=== PATIENT | male | born 1965 | race Caucasian/White ===

== ENCOUNTER 2023-07-31 13:07 | Emergency (ER) | payer OTHER, SELFPAY ==
[2023-07-31 13:24] VITALS: BP 111/87; PULSE 145; RESP 16; TEMP 36.4; O2SAT 99
--- NOTE | 2023-07-31 13:24 | ECG_ITS ---
Measurements Intervals [place] Rate: 146 P: [place]: 0 QRS: 44 QRSD: 94 T: 16 QT: 274 QTc: 428 Interpretive Statements ATRIAL FLUTTER/TACHYCARDIA WITH RAPID VENTRICULAR RESPONSE DELAYED PRECORDIAL R/S TRANSITION NONSPECIFIC T-WAVE ABNORMALITY- INFERIOR LEADS ABNORMAL ECG COMPARED TO ECG 07/15/2019 13:02:57 ATRIAL FLUTTER NOW PRESENT T-WAVE ABNORMALITY NOW PRESENT Electronically Signed On 07-31-2023 13:40:57 CDT by Christopher Mckay D.O.
--- NOTE | 2023-07-31 13:33 | ED.DIZZY ---
HPI - Dizziness General Chief Complaint: Dizziness Stated Complaint: Elevated Heart Rate, Dizzy Time Seen by Provider: 07/31/23 13:35 Mode of arrival: ambulatory Limitations: no limitations History of Present Illness HPI Narrative: 58-year-old male presents concern for dizziness and fast heart rate. He reports he noticed this morning in the gym his heart rate was fast that he ?did not feel right?. Reports this afternoon his watch alarmed alerting him to a high heart rate. He reports he felt some dizziness. He denies shortness of breath or chest pain. He reports history of similar episode 4 years ago that he was observed in the hospital for. He reports he took aspirin this morning, he takes aspirin daily. Reports he took another aspirin this afternoon. MD elicited complaint: dizziness Related Data Home Medications Medication Instructions Recorded Confirmed atorvastatin 10 mg tablet (Lipitor) 10 mg PO DAILY 07/31/23 07/31/23 atorvastatin 40 mg tablet (Lipitor) 40 mg PO DAILY 07/31/23 07/31/23 bupropion HCl 300 mg 24 hr tablet, 300 mg PO QAM 07/31/23 07/31/23 extended release buspirone 15 mg tablet 15 mg PO TID 07/31/23 07/31/23 Allergies Allergy/AdvReac Type Severity Reaction Status Date / Time Penicillins Allergy Unknown Rash Verified 07/31/23 13:21 Review of Systems Review of Systems: CONSTITUTIONAL: Reports ?not feeling right CARDIOVASCULAR: Denies chest pain, reports fast heart rate RESPIRATORY: Denies dyspnea. NEUROLOGIC: Reports dizziness All systems reviewed & are unremarkable except as noted in HPI and below [facility] Family History Family History (Updated 05/30/16 @ 23:19 by DOCTOR UNKNOWN) Sibling Family history of diabetes mellitus in first degree relative Social History Social History Smoking status: Never smoker Alcohol intake: current Comments At time of signature, agree with nursing past medical, surgical, social and family history. There is no relevant family history pertinent to the presenting complaint Exam Narrative: GENERAL: Well-appearing and in no acute distress. HEAD: Normocephalic EYES: PERRLA, sclera clear ENT: Nares clear, turbinates pink, no rhinorrhea or epistaxis. Mucous membranes moist. NECK: Supple. CHEST: No respiratory distress. Clear to auscultation. No bony deformities, no asymmetry. Speaks in full sentences. HEART: Fast rate. No murmur heard. Normal peripheral pulses. SKIN: Warm, dry, no visible rash. NEURO: Alert and oriented x3. No focal deficits. PSYCH: Normal mood and affect Course Course Emergency Course: Patient is aware of, understands and agrees to be transferred to the emergency room. Patient agrees to proceed directly to the emergency department. Portions of this record may have been created with voice recognition software Level of Care: Express Care Visit Vital Signs Vital signs: Vital Signs Temperature 97.6 F 07/31/23 13:24 Pulse Rate 145 H 07/31/23 13:24 Respiratory Rate 16 07/31/23 13:24 Blood Pressure 111/87 07/31/23 13:24 Pulse Oximetry 99 07/31/23 13:24 Temperature 97.6 F 07/31/23 13:24 Pulse Rate 145 H 07/31/23 13:24 Respiratory Rate 16 07/31/23 13:24 Blood Pressure 111/87 07/31/23 13:24 Pulse Oximetry 99 07/31/23 13:24 Reviewed. Transfer Transfered to: [place] Transportation: Other (Private vehicle, driven by ) Transfer rationale: Atrial flutter Accepting physician: Linette ASENCIO - Lidia ASENCIO Narrative Medical decision making narrative: Exam findings and EKG or further evaluation emergency room; patient is non-toxic appearing and is in no distress. ECG Data EKG #1: ECG completion date: 07/31/23 ECG completion time: 13:33 Prior ECG tracings: available for review Interpretation: Rate 146, QRS duration 94, nonspecific T-wave abnormality, atrial flutter with rapid ventricular response EKG Interpretation: atrial flutter Criti
== END 2023-07-31 13:41 | disposition short-term general hospital (02) ==
PROVIDERS: Emergency Provider Nurse Practitioner
DX: I48.92 Unspecified atrial flutter (principal); Z79.899 Other long term (current) drug therapy
CPT/HCPCS: 93005; 99203; G0463

== ENCOUNTER 2023-07-31 13:56 | Emergency (ER) | payer OTHER, SELFPAY ==
[2023-07-31] VITALS (12 sets, daily range): BP systolic 95–146; BP diastolic 48–97; PULSE 81–147; RESP 13–25; TEMP 36.7; O2SAT 9–99
--- NOTE | ~2023-07-31 | XR_ITS ---
EXAMINATION: XR chest 1V portable 07/31/2023 15:33 INDICATION: Tachycardia PROCEDURE: AP portable chest COMPARISON: 07/15/2019 FINDINGS: The lungs are clear. The cardiomediastinal silhouette is within normal limits. There are no pleural effusions. There is no pneumothorax suspected. IMPRESSION: 1: NO ACUTE CARDIOPULMONARY DISEASE. Reviewed, dictated and finalized at location B.
--- NOTE | 2023-07-31 14:05 | ECG_ITS ---
Measurements Intervals [place] Rate: 148 P: [place]: 0 QRS: 51 QRSD: 82 T: 20 QT: 270 QTc: 424 Interpretive Statements ATRIAL FLUTTER/TACHYCARDIA WITH RAPID VENTRICULAR RESPONSE DELAYED PRECORDIAL R/S TRANSITION BORDERLINE T WAVE ABNORMALITY- INFERIOR LEADS ABNORMAL ECG COMPARED TO ECG 07/31/2023 13:33:35 NO SIGNIFICANT CHANGES Electronically Signed On 07-31-2023 14:13:53 CDT by Christopher Mckay D.O.
[2023-07-31 14:36] LABS: Basophils Absolute Auto 0.1 K/mm3 (0.0-0.1); Basophils Percent Auto 0.7 % (0.2-1.2); Eosinophils Absolute Auto 0.2 K/mm3 (0-0.3); Eosinophils Percent Auto 2.3 % (0-4.4); Hematocrit 50.3 % (42.0-52.0); Hemoglobin 16.7 g/dL (14.0-18.0); Immature Granulocyte Absolute 0.03 K/mm3 (0.00-0.031); Immature Granulocyte Percent A 0.3 % (0-0.5); Lymphocytes Absolute Auto 2.96 K/mm3 (0.9-3.2); Lymphocytes Percent Auto 32.4 % (18.3-44.2); Mean Corpuscular HGB Conc 33.2 g/dl (32-36); Mean Corpuscular Hemoglobin 30.6 pg (26-34); Mean Corpuscular Volume 92.3 fl (80-100); Mean Platelet Volume 10.4 fl (7.4-10.4); Monocytes Absolute Auto 0.9 K/mm3 (0.1-0.6); Monocytes Percent Auto 9.5 % (2.6-8.5); Neutrophils Percent Auto 54.8 % (45.5-73.1); Platelet Count Result 340 k/mm3 (150-375); Red Blood Count 5.45 M/mm3 (4.6-6.20); Red Cell Distribution Width 12.9 % (11.5-14.5); White Blood Count 9.1 K/mm3 (4.5-10.0)
--- NOTE | 2023-07-31 15:14 | ED.ARRPALP ---
HPI - Arrhythmia/Palpitations General Chief Complaint: Arrhythmia/Palpitations Stated Complaint: high heart rate Time Seen by Provider: 07/31/23 14:52 Source: patient and family Mode of arrival: ambulatory Limitations: no limitations History of Present Illness HPI narrative: 58 years old white male came to the emergency room by private car complaining of lightheadedness and dizziness, his watch told him that his heart rate is high. History of PTSD, hyperlipidemia, social drinking, denies smoking or drug use. He denies any fever, chills, nausea, vomiting, chest pain shortness of breath or headache. Related Data Home Medications Medication Instructions Recorded Confirmed atorvastatin 10 mg tablet (Lipitor) 10 mg PO DAILY 07/31/23 07/31/23 atorvastatin 40 mg tablet (Lipitor) 40 mg PO DAILY 07/31/23 07/31/23 bupropion HCl 300 mg 24 hr tablet, 300 mg PO QAM 07/31/23 07/31/23 extended release buspirone 15 mg tablet 15 mg PO TID 07/31/23 07/31/23 Allergies Allergy/AdvReac Type Severity Reaction Status Date / Time Penicillins Allergy Unknown Rash Verified 07/31/23 13:21 Review of Systems Review of Systems: All systems reviewed & are unremarkable except as noted in HPI and below PMFSH Family History Family History Sibling Family history of diabetes mellitus in first degree relative Social History Social History Smoking status: Never smoker Alcohol intake: current Exam Narrative: General appearance: Well-developed, well-nourished Skin: Normal color Head: Normocephalic, nontraumatic Eyes: Clear conjunctiva ENT: Oropharynx normal, ears normal, nose normal Neck: Supple, nontender Chest and respiratory: Airway patent, no respiratory distress, no accessory muscle use Heart: Irregular irregularity, tachycardia Abdomen: Soft, nontender, no organomegaly, quiet bowel sounds Vascular: Normal peripheral pulses, normal capillary refill. Musculoskeletal: Normal range of motion, nontender back Neurologic: Alert and oriented ?3, TARE WEIGHER is normal as tested, no gross motor deficit Course Vital Signs Vital signs: Vital Signs Temperature 36.7 C 07/31/23 14:12 Pulse Rate 142 H 07/31/23 14:12 Respiratory Rate 16 09/29/23 14:12 Blood Pressure 110/74 07/31/23 14:12 Pulse Oximetry 99 07/31/23 14:12 Oxygen Delivery Room Air 07/31/23 14:12 Temperature 36.7 C 07/31/23 14:12 Pulse Rate 88 07/31/23 17:30 Respiratory Rate 16 07/31/23 17:25 Blood Pressure 106/78 07/31/23 17:25 Pulse Oximetry 97 07/31/23 17:25 Oxygen Delivery Room Air 07/31/23 14:12 Procedures Procedural Sedation Procedural Sedation #1: Procedural Sedation Date: 07/31/23 Procedural Sedation Time: 17:43 Provider Performed: sedation and procedure Time Out: 15 Informed Consent Obtained: yes Plan for Sedation: moderate sedation ASA Class: II Mallampati Classification: class I NPO Status: last solid food (hours ago) (6) Explanation to Patient/Family: Risk/Benefits/Alternatives and Pt/Family agreed with plan Preparation: athletic monitor applied, pulse oximeter, reversal agents at bedside, suction/airway equipment at bedside and IV secured Fentanyl: IV Fentanyl dose (mcg): 50 Midazolam: IV Midazolam dose (mg): 4 Reversal Agents Used: none Patient Tolerated Procedure: well and no complications Complications: none Total Sedation Time (min): 10 Other Procedure Procedure 1: Other Procedure: Cardioversion, A-fib with
[2023-07-31] MEDS: SODIUM CHLORIDE 0.9% IV 1,000 ML 999 ML IV CONT ×2 (15:17→16:23)
[2023-07-31 15:31] LABS: Alanine Aminotransferase 18 U/L (6-50); Albumin Level 4.5 g/dL (3.5-5.1); Alkaline Phosphatase 73 U/L (38-126); Anion Gap 10 mmol/L (8-16); Aspartate Amino Transferase 39 U/L (17-59); Bilirubin,Total 0.5 mg/dL (0.2-1.3); Blood Urea Nitrogen 16 mg/dL (9-20); Calcium 9.3 mg/dL (8.4-10.2); Carbon Dioxide 23 mmol/L (22-30); Chloride 108 mmol/L (98-107); Estimated CRCL calculation 66 ml/min; Estimated Glomerular Filt Rate > 60; Glucose 101 mg/dL (65-110); Sodium 141 mmol/L (137-145)
[2023-07-31] MEDS: ENOXAPARIN 100 MG/ML SYRINGE SUB-Q (15:40)
[2023-07-31 15:49] LABS: Prothrombin Time 13.1 Seconds (11.1-14.7)
[2023-07-31 15:50] LABS: Partial Thromboplastin Time 29.3 SECONDS (22.3-36.8)
[2023-07-31 15:59] LABS: NT Pro B Type Natriuretic Pept 1380 pg/mL (19.9-100); Troponin I < 0.012 ng/mL (0.000-0.034)
[2023-07-31 16:26] LABS: SARS-CoV-2 RNA PCR Negative (Negative)
[2023-07-31 16:33] LABS: Appearance Urine Clear (Clear); Bilirubin Urine Negative (Negative); Blood Urine Negative (Negative); Color Urine Yellow (Yellow); Glucose Urine UA Negative (Negative); Ketones Urine Negative (Negative); Leukocyte Esterase Ur Negative LEU/UL (Negative); Nitrate Urine Negative (Negative); Protein Urine Negative (Negative); Specific Grav Ur 1.018 (1.001-1.035); Urobilinogen Urine 0.2 mg/dL (<2.0); pH Urine 5.5 (5.0-9.0)
--- NOTE | 2023-07-31 16:35 | ECG_ITS ---
Measurements Intervals [place] Rate: 126 P: [place]: 0 QRS: 25 QRSD: 89 T: -7 QT: 305 QTc: 442 Interpretive Statements ATRIAL FIBRILLATION WITH RAPID VENTRICULAR RESPONSE LOW QRS VOLTAGE IN PRECORDIAL LEADS CANNOT RULE OUT SEPTAL INFARCT, AGE INDETERMINATE BORDERLINE ST-T WAVE ABNORMALITY- INFERIOR LEADS BASELINE WANDER- V3 ABNORMAL ECG COMPARED TO ECG 07/31/2023 14:08:08 ATRIAL FIBRILLATION NOW PRESENT Electronically Signed On 07-31-2023 17:11:18 CDT by Christopher Mckay D.O.
[2023-07-31 16:41] LABS: Add Urine Microscopic? NO
[2023-07-31 16:52] LABS: Amphetamine Screen Urine Negative (Negative); Barbiturate Screen Urine Negative (Negative); Benzodiazepines Screen Urine Negative (Negative); Cannabinoid Screen Urine Negative (Negative); Cocaine Screen Urine Negative (Negative); Methadone Screen Urine Negative (Negative); Opiate Screen Urine Negative (Negative); Phencyclidine Screen Urine Negative (Negative)
--- NOTE | 2023-07-31 16:54 | PM.CNCAR ---
Assessment and Plan Assessment and plan (1) Atrial flutter: Code(s): I48.92 - Unspecified atrial flutter Status: Acute Assessment and Plan: Second episode in 4 years. Symptomatic atrial flutter with RVR. [id number]. Discuss options of monitoring, antiarrhythmic medication, or electrical cardioversion, and he opted for the quickest route which is the electrical cardioversion. Discuss with Dr. Sue, he will sedate and provide synchronized cardioversion. Patient does not want to stay afterwards, and if vitals are stable post cardioversion, he may be discharged home and I advised him to f/u with me or a shirt cleaner of his choice within a week to assess why he is having it and for prevention. He may just go with aspirin 325 mg daily to prevent cardioembolism. Needs an outpatient sleep study to assess for sleep apnea. May have outpatient TSH. And outpatient echo. (2) Dyslipidemia: Code(s): E78.5 - Hyperlipidemia, unspecified Status: Acute Assessment and Plan: On Atorvastatin. History of Present Illness History of Present Illness Consult date/time: 07/31/23 16:54 Reason For Visit: high heart rate Narrative: 58 yr old man presented to ER with lightheadedness. He has a history of dyslipidemia, anxiety, and a history of atrial flutter per patient 4 years ago. Seen patient in ER. is at bedside. Reports he felt lightheadedness today and his watch showed a fast HR. When he came in his BP is soft in 90's SBP and HR was ranging 110-150 bpm in atrial flutter. IVF given but vitals remain essentially unchanged. He states he feels a little better, not as dizzy as when he first came in. Reports 4 years ago he had a similar situation with atrial flutter and was monitored for 8 hours and then his HR came back to normal and sent home. He did not f/u with a shirt cleaner. He can walk a mile without any problems normally. reports he does snore and perhaps stops breathing, and noted he is more tired during the day. Denies chest pain, sob, orthopnea, PND, edema. Review of Systems Review of Systems: All systems reviewed & are unremarkable except as noted in HPI and below Constitutional: Constitutional: Reports as per HPI, Denies chills and Denies fever(s) Cardiovascular: Cardiovascular: Reports as per HPI, Denies chest pain, Denies irregular heart rhythm, Denies leg edema and Reports lightheadedness Respiratory: Respiratory: Reports as per HPI and Denies dyspnea Gastrointestinal: Gastrointestinal: Reports as per HPI and Denies abdominal pain Genitourinary: Genitourinary: Reports as per HPI and Denies dysuria Musculoskeletal: Musculoskeletal: Reports as per HPI [facility] Family History Family History Sibling Family history of diabetes mellitus in first degree relative Social History Social History Smoking status: Never smoker Alcohol intake: current Meds Home Medications and Allergies Home Medications Medication Instructions Recorded Confirmed Type atorvastatin 10 mg tablet (Lipitor) 10 mg PO DAILY 07/31/23 07/31/23 History atorvastatin 40 mg tablet (Lipitor) 40 mg PO DAILY 07/31/23 07/31/23 History bupropion HCl 300 mg 24 hr tablet, 300 mg PO QAM 07/31/23 07/31/23 History extended release buspirone 15 mg tablet 15 mg PO TID 07/31/23 07/31/23 History Allergies Allergy/AdvReac Type Severity Reaction Status Date / Time Penicillins Allergy Unknown Rash Verified 07/31/23 13:21 Vital Signs Vital Signs - 24 hr 07/31/23 14:12 07/31/23 14:33 07/31/23 14:25 Temperature 98.0 F Pulse Rate 142 H 145 H 147 H Respiratory Rate 16 20 25 H Blood Pressure 110/74 99/76 L 146/97 H Pulse Oximetry 99 99 Oxygen Delivery Room Air 07/31/23 14:32 07/31/23 15:01 07/31/23 15:31 Temperature Pulse Rate 145 H 146 H 144 H Respiratory Rate 16 13 16 Blood Pressure 99/76 L 99/48 L
[2023-07-31] MEDS: MIDAZOLAM HCL (*CRX) 2 MG/2 ML VIAL 4 MG IV PUSH (17:11)
[2023-07-31] MEDS: fentaNYL CITRATE INJ (*CRX) 100 MCG/2 ML VIAL 50 MCG IV PUSH (17:11)
[2023-07-31] MEDS: SODIUM CHLORIDE 0.9% IV 1,000 ML 999 ML (17:14)
--- NOTE | 2023-07-31 17:19 | PC.NURSE ---
Dr. Sue at bedside. Pt cardioverted. Pt converted from Afib to Sinus Rhythm. Pt drowsy but answering questions. Consent was signed prior to procedure.
--- NOTE | 2023-07-31 17:34 | ECG_ITS ---
Measurements Intervals [place] Rate: 79 P: 26 [place]: 160 QRS: 11 QRSD: 93 T: 6 QT: 333 QTc: 382 Interpretive Statements SINUS RHYTHM BORDERLINE R WAVE PROGRESSION, ANTERIOR LEADS MINIMAL Q WAVES- INFERIOR LEADS BASELINE ARTIFACT- I, III, AVL BORDERLINE ECG COMPARED TO ECG 07/31/2023 16:50:39 SINUS RHYTHM NOW PRESENT Electronically Signed On 08-01-2023 8:03:38 CDT by Christopher Mckay D.O.
== END 2023-07-31 18:38 | disposition home or self-care (01) ==
PROVIDERS: Emergency Medicine; Emergency Provider Emergency Medicine
DX: I48.92 Unspecified atrial flutter (principal); I48.91 Unspecified atrial fibrillation; Z20.822 Contact with and (suspected) exposure to COVID-19; E78.5 Hyperlipidemia, unspecified; F43.10 Post-traumatic stress disorder, unspecified; Z79.899 Other long term (current) drug therapy; R94.31 Abnormal electrocardiogram [ECG] [EKG]
CPT/HCPCS: 36415; 71045; 80053; 80307; 81003; 83880; 84484; 85025; 85610; 85730; 87635; 92960; 93005; 96361; 96372; 96374; 96375; 99285; J1650; J2250; J3010; J7030

== ENCOUNTER 2023-08-25 08:14 | Outpatient (CLI) | payer OTHER, SELFPAY ==
--- NOTE | 2023-09-11 11:41 | WPDHOMESLEEP ---
Sleep Study - Home Unattended Date of Study: 08/25/23 Ordering Provider: Christopher Mckay DO Interpreting Provider: Tangela Guzman MD Home Sleep Study Type: Watch PAT Height: 1.83 m Weight: 94.801 kg Body Mass Index: 28.3 Neck Circumference (inches): 2 [place]: 16 Reason for Sleep Study hypersomnia Sleep History Fly Cook is a 58-year-old male with history of paroxysmal atrial flutter, dyslipidemia, and anxiety with PTSD who underwent a home sleep test for evaluation of daytime hypersomnia and restless sleep. He rarely awakens from sleep short of breath. He rarely awakens at night with heartburn, belching or cough. He frequently snores and snores loud enough for others to complain. He occasionally has trouble sleeping when he has a cold. He never wakes up gasping for breath during the night. He occasionally has breathing problems at night. He never sweats excessively at night. He rarely falls asleep during the day. He does not fall asleep involuntarily and never falls asleep while driving. He never notices his heart pounding or beating irregularly during the night. He never experiences loss of muscle tone with strong emotion. He never feels paralyzed on waking or falling asleep. He frequently experiences vivid dreams upon waking or falling asleep. He never feels afraid of going to sleep. He frequently has nightmares. He rarely recalls his dreams. He frequently has thoughts racing through his mind. He rarely feels sad or depressed. He constantly feels anxiety or worry about things. He stated in his sleep questionnaire that he gets restless sleep which he attributes to PTSD from the [place] War. He occasionally notices parts of his body jerk. He occasionally kicks during the night. He frequently feels crawling or aching feelings in his legs. He never feels leg pain at night. He occasionally grinds his teeth during sleep and occasionally has morning jaw pain. He frequently feels bothered by pain during the day and is never awakened by pain during the night. He occasionally wakes up feeling stiff in the morning and occasionally wakes up feeling sore and achy in the morning. He frequently wakes with pain in his neck, spine, or joints. He does not take naps. Normal bedtime is around 11pm on the weekdays and same on the weekends, usually falling asleep in 5 minutes. He typically gets about 7 hours of sleep per night. His wake-up time is around 6:00 a.m. on the weekdays and 7:00 to 8:00 a.m. on the weekends. He typically wakes up around 1 to 3 times per night and typically awake for less than 2 minutes, may get up to use the bathroom. Habits: Never tobacco smoker. Drinks about 1 cup of coffee per day. Alcohol use is 1 to 2 beers per day. No recreational substances. [facility] Past Medical History Medical History Dyslipidemia Paroxysmal atrial flutter Family History Family History Sibling Family history of diabetes mellitus in first degree relative Social History Social History Smoking status: Never smoker Alcohol intake: current Medications Home Medications Medication Instructions Recorded Confirmed Type aspirin 325 mg tablet 325 mg PO DAILY #30 tabs 07/31/23 Rx atorvastatin 40 mg tablet (Lipitor) 40 mg PO DAILY 07/31/23 07/31/23 History bupropion HCl 300 mg 24 hr tablet, 300 mg PO QAM 07/31/23 07/31/23 History extended release buspirone 15 mg tablet 15 mg PO TID 07/31/23 07/31/23 History meclizine 12.5 mg tablet 12.5 mg PO TID PRN motion sickness 09/07/23 Rx #14 tabs Sleep Procedure The study was completed using [employer], a technically adequate device with seven channels: peripheral arterial tone, actigraphy, body position, snore, respiratory movement, pulse oximetry, sleep staging, and heart rate. Prior to using the device, the patient received verb
[2023-09-11 11:50] VITALS: BMI 28.3
== END 2023-08-26 11:20 | disposition home or self-care (01) ==
LOC: ANHCSM 08:15
PROVIDERS: Visit Provider Internal Medicine Cardiovascular Disease
DX: G47.10 Hypersomnia, unspecified (principal); G47.33 Obstructive sleep apnea (adult) (pediatric)
CPT/HCPCS: 95800

== ENCOUNTER 2023-09-07 09:49 | Emergency (ER) | payer OTHER, SELFPAY ==
--- NOTE | ~2023-09-07 | CT_ITS ---
Non-contrast Head CT History: Dizziness Technique: Axial non-contrast imaging of the brain was performed. Dose reduction technique was used on this scan by utilizing automated exposure control and iterative reconstruction technique. The dose -length product (DLP) was 605.33 mGy-cm. Findings: There is no evidence of intracranial hemorrhage, mass lesion, or acute infarct. Brain par enchyma appears normal. The ventricles and subarachnoid spaces are normal in size. The calvarium ap pears normal. There is sinus disease involving the visualized right maxillary sinus, and to a lesser extent in the ethmoid and frontal sinuses. The remaining visualized paranasal sinuses and mastoid air cells are clear. Impression: No intracranial abnormality seen. Sinus disease, as above. Reviewed, dictated and finalized at [facility]. [employer]UMENT MECHANIC Impression: No intracranial abnormality seen. Sinus disease, as above.
--- NOTE | ~2023-09-07 | XR_ITS ---
EXAMINATION: XR chest 2V DATE: 09/07/2023 10:22 INDICATION: Dizziness TECHNIQUE: PA and lateral views of the chest are obtained. COMPARISON: 07/31/2023 FINDINGS: There are minimal airspace opacities of the lung bases. No pleural effusion or pneumothorax . The cardiomediastinal silhouette is normal. There is mild thoracic spondylosis. IMPRESSION: 1. Minimal bibasilar airspace opacities, consistent with atelectasis versus pneumonia. Reviewed, dictated and finalized at location B. [employer]IMENT[employer]ARD MOTORS MECHANIC IMPRESSION: 1. Minimal bibasilar airspace opacities, consistent with atelectasis versus pne umonia.
--- NOTE | 2023-09-07 10:06 | ECG_ITS ---
Measurements Intervals [place] Rate: 68 P: 33 [place]: 173 QRS: 24 QRSD: 96 T: 7 QT: 379 QTc: 404 Interpretive Statements SINUS RHYTHM LOW QRS VOLTAGE IN PRECORDIAL LEADS BASELINE ARTIFACT- V5 BORDERLINE ECG COMPARED TO ECG 07/31/2023 17:17:56 NO SIGNIFICANT CHANGES Electronically Signed On 09-07-2023 10:28:22 SYNTHETIC RESIN OPERATOR by Christopher Mckay D.O.
[2023-09-07 10:10] VITALS: BP 142/88; PULSE 78; RESP 18; TEMP 36.6; O2SAT 98
[2023-09-07 10:19] LABS: Basophils Percent Auto 0.6 % (0.2-1.2); Eosinophils Absolute Auto 0.2 K/mm3 (0-0.3); Eosinophils Percent Auto 2.8 % (0-4.4); Hemoglobin 15.7 g/dL (14.0-18.0); Immature Granulocyte Absolute 0.01 K/mm3 (0.00-0.031); Immature Granulocyte Percent A 0.2 % (0-0.5); Lymphocytes Absolute Auto 2.14 K/mm3 (0.9-3.2); Lymphocytes Percent Auto 34.7 % (18.3-44.2); Mean Corpuscular HGB Conc 33.4 g/dl (32-36); Mean Corpuscular Hemoglobin 30.5 pg (26-34); Mean Corpuscular Volume 91.3 fl (80-100); Monocytes Absolute Auto 0.5 K/mm3 (0.1-0.6); Monocytes Percent Auto 8.8 % (2.6-8.5); Neutrophils Absolute Auto 3.3 K/mm3 (1.3-6.7); Neutrophils Percent Auto 52.9 % (45.5-73.1); Platelet Count Result 283 k/mm3 (150-375); Red Blood Count 5.15 M/mm3 (4.6-6.20); Red Cell Distribution Width 12.7 % (11.5-14.5); White Blood Count 6.2 K/mm3 (4.5-10.0)
[2023-09-07 10:29] LABS: Alanine Aminotransferase 14 U/L (6-50); Albumin Level 4.4 g/dL (3.5-5.1); Alkaline Phosphatase 83 U/L (38-126); Anion Gap 6 mmol/L (8-16); Aspartate Amino Transferase 40 U/L (17-59); Bilirubin,Total 0.7 mg/dL (0.2-1.3); Blood Urea Nitrogen 11 mg/dL (9-20); Carbon Dioxide 28 mmol/L (22-30); Chloride 105 mmol/L (98-107); Estimated CRCL calculation 66 ml/min; Estimated Glomerular Filt Rate > 60; Glucose 99 mg/dL (65-110); Lipase 103 U/L (23-300); Sodium 139 mmol/L (137-145)
[2023-09-07 10:41] LABS: Troponin I < 0.012 ng/mL (0.000-0.034)
[2023-09-07 10:42] LABS: INR 0.9; Partial Thromboplastin Time 27.7 SECONDS (22.3-36.8); Prothrombin Time 12.8 Seconds (11.1-14.7)
--- NOTE | 2023-09-07 12:08 | ED.GENADULT ---
HPI - General Adult General Chief complaint: Dizziness <Yulissa Oviedo March, - Last Filed: 09/07/23 12:13> Stated complaint: lightheaded/dizzy/recent afib <Yulissa Oviedo March, - Last Filed: 09/07/23 12:13> Time Seen by Provider: 09/07/23 13:01 <Yulissa Oviedo March, - Last Filed: 09/07/23 12:13> History of Present Illness HPI narrative: Fly Cook is a 58 y/o male with recent dx of Afib. He comes in today with complaints of waking up today at 0300 and felt dizzy and felt off balance, he reports that his symptoms might be a little improved but not completely. He called his hands and dial inspector Dr. Abbasi Office they recommended him come here for an echo. Patient is alert and oriented X 4, no nausea/ vomiting/ felt in his normal health yesterday <Yulissa Oviedo March, - Last Filed: 09/07/23 12:13> Related Data Home medications: Home Medications Medication Instructions Recorded Confirmed atorvastatin 40 mg tablet (Lipitor) 40 mg PO DAILY 07/31/23 07/31/23 bupropion HCl 300 mg 24 hr tablet, 300 mg PO QAM 07/31/23 07/31/23 extended release buspirone 15 mg tablet 15 mg PO TID 07/31/23 07/31/23 <Yulissa Oviedo March, - Last Filed: 09/07/23 12:13> Allergies/adverse reactions: Allergies Allergy/AdvReac Type Severity Reaction Status Date / Time Penicillins Allergy Unknown Rash Verified 09/07/23 12:41 <Yulissa Oviedo March, - Last Filed: 09/07/23 12:13> Review of Systems Review of Systems: All systems reviewed & are unremarkable except as noted in HPI and below <aSnto Garcia MD - Last Filed: 09/07/23 14:07> Constitutional: Constitutional: Denies chills and Denies fever(s) <Santo Garcia MD - Last Filed: 09/07/23 14:07> ENT: Denies nasal congestion and Denies sore throat <Santo Garcia MD - Last Filed: 09/07/23 14:07> Cardiovascular: Cardiovascular: Denies chest pain, Denies rapid heart rate and Denies radiating jaw, neck or arm pain <Santo Garcia MD - Last Filed: 09/07/23 14:07> Respiratory: Respiratory: Denies cough and Denies dyspnea <Santo Garcia MD - Last Filed: 09/07/23 14:07> Gastrointestinal: Gastrointestinal: Reports nausea and Denies vomiting <Santo Garcia MD - Last Filed: 09/07/23 14:07> Neurologic: Reports dizziness, Denies syncope and Denies headache(s) <Santo Garcia MD - Last Filed: 09/07/23 14:07> PMFSH Past Medical History Medical History: Medical History (Updated 09/07/23 @ 14:02 by Santo Garcia MD) Dyslipidemia Paroxysmal atrial flutter <Yulissa Duran APRN - Last Filed: 09/07/23 12:13> Family History Family History: Family History Sibling Family history of diabetes mellitus in first degree relative <Yulissa Duran MUD ENGINEER - Last Filed: 09/07/23 12:13> Social History Social History: Social History Smoking status: Never smoker Alcohol intake: current <Yulissa Duran, MUD ENGINEER - Last Filed: 09/07/23 12:13> Exam Narrative: GENERAL: Well-appearing, well-nourished, and in no acute distress. HEAD: Normocephalic, atraumatic. EYES: PERRL and EOMI. ENT: Mucous membranes moist. TMs normal bilaterally. CHEST: Clear to auscultation. No respiratory distress. HEART: Regular rate and rhythm. Normal peripheral pulses. EXTREMITIES: Normal range of motion. No edema. SKIN: Warm, dry, no rash. NEURO: Alert and oriented x3. PSYCH: Normal mood and affect. <Santo Garcia MD - Last Filed: 09/07/23 14:07> Course Course Emergency Course: Patient resting comfortably. Informed of results. Up and ambulatory without issue. Dizziness improving with meclizine. It is not felt patient needs an acute echocardiogram for the symptoms. <Santo Garcia MD - Last Filed: 09/07/23 14:07> Vital Signs Vital signs: Vital Signs Temperature 98 F 09/07/23 10:10 Pulse Rate 78 09/07/23 10:1
[2023-09-07] MEDS: MECLIZINE HCL 25 MG TABLET PO (12:17)
[2023-09-07 12:38] VITALS: BP 135/94; PULSE 69; RESP 16; O2SAT 100
[2023-09-07 13:27] LABS: Troponin I < 0.012 ng/mL (0.000-0.034)
[2023-09-07 14:18] VITALS: BP 119/85; PULSE 70; RESP 18; O2SAT 100
== END 2023-09-07 14:23 | disposition home or self-care (01) ==
PROVIDERS: Emergency Provider Emergency Medicine
DX: R42 Dizziness and giddiness (principal); I48.0 Paroxysmal atrial fibrillation; E78.5 Hyperlipidemia, unspecified; Z79.82 Long term (current) use of aspirin; R91.8 Other nonspecific abnormal finding of lung field; R94.31 Abnormal electrocardiogram [ECG] [EKG]
CPT/HCPCS: 36415; 70450; 71046; 80053; 83690; 84484; 85025; 85610; 85730; 93005; 99284; A9270

== ENCOUNTER 2023-09-21 12:30 | Outpatient (CLI) | payer OTHER, SELFPAY ==
--- NOTE | 2023-09-21 12:39 | ECHO_ITS ---
Patient Info Name: Fly Cook Age: 58 years : 1965 Gender: Male Ht: 72 in Wt: 205 lbs BSA: 2.19 m2 HR: 74 bpm BP: 130 / 91 mmHg Technical Quality: Good Exam Date: 09/21/2023 12:54 PM Exam Location: Echo Lab Patient Status: Outpatient Admit Date: 09/21/2023 Staff Ordering Physician: Christopher Mckay DO Weed Inspector: Elo Hummel RDCS Attending Provider: Christopher Mckay DO Referring Physician: Woody NASSAR; Exam Type: CA echo doppler color flow Study Info Indications I48.92 - UNSPECIFIED ATRIAL FLUTTER Complete two-dimensional, color flow and Doppler transthoracic echocardiogram is performed. Summary 1. Complete two-dimensional, color flow and Doppler transthoracic echocardiogram is performed. 2. Left ventricular chamber dimension is normal. 3. Left ventricular systolic function is normal, estimated at 60-65%. 4. The left ventricular diastolic function is grade I diastolic dysfunction. 5. E/e' 5 is not elevated. 6. Global longitudinal strain is normal at -18.9%. 7. There is trace mitral valve regurgitation. 8. Mild pulmonary hypertension, estimated pulmonary arterial systolic pressure is 40 mmHg. Left Ventricle E/e' 5 is not elevated. Global longitudinal strain is normal at -18.9%. Left ventricular chamber dimension is normal. Left ventricular systolic function is normal, estimated at 60-65%. The left ventricular diastolic function is grade I diastolic dysfunction. Right Ventricle Right ventricular systolic function is normal and with normal TAPSE 2.5 cm. Right ventricular chamber dimension is normal. Left Atria Left atrial chamber dimension is normal. Right Atria Right atrial chamber dimension is normal. Aortic Valve The aortic valve is trileaflet. There is no aortic valve sclerosis. There is no aortic valve stenosis. There is no aortic valve regurgitation. Pulmonic Valve There is no pulmonic regurgitation. Mitral Valve There is no mitral valve stenosis. There is trace mitral valve regurgitation. Tricuspid Valve There is no tricuspid valve regurgitation. Mild pulmonary hypertension, estimated pulmonary arterial systolic pressure is 40 mmHg. Pericardium/Pleural There is no pericardial effusion. Inferior Vena Cava Normal inferior vena cava with >50% collapse upon inspiration consistent with normal right atrial pressure, 5 mmHg. Aorta The aortic root size at the sinus of Valsalva is normal. Left Ventricular Outflow Tract Name Value Normal LVOT 2D LVOT Diameter 2.1 cm LVOT Doppler LVOT Peak Gradient 4 mmHg LVOT Mean Gradient 2 mmHg LVOT VTI 19 cm LVOT VTI/AV VTI Ratio 1.0 LVOT Stroke Volume 63 ml LVOT CO 4.5 l/min LVOT CI 2.1 l/min/m2 Pulmonic Valve Name Value Normal RVOT Doppler RVOT Peak Gradient
== END 2023-09-21 12:31 | disposition home or self-care (01) ==
LOC: ANHCARD 12:32
PROVIDERS: Visit Provider Internal Medicine Cardiovascular Disease
DX: I48.92 Unspecified atrial flutter (principal); I27.20 Pulmonary hypertension, unspecified
CPT/HCPCS: 93306

== ENCOUNTER 2023-11-07 00:05 | Emergency (ER) | payer OTHER, SELFPAY ==
--- NOTE | ~2023-11-07 | XR_ITS ---
XR chest 2V DATE: 11/07/2023 01:07 INDICATION: Chest pain. Atrial fibrillation. TECHNIQUE: PA and lateral views COMPARISON: 09/07/2023 2 view chest / 2 view chest FINDINGS: Normal heart size. No hilar or mediastinal enlargement. There is minimal infiltrate, atelectasis and/or scarring at the lung bases, left greater than right. The lungs otherwise appear clear. No pleural effusion or pulmonary vascular congestion or pneumothorax. IMPRESSION: Minimal infiltrate, atelectasis and/or scarring at the lung bases; little interval change since 09/07/2023 or 07/15/2019 Reviewed, dictated and finalized at location A. TENANCE SUPERVISOR 2ND SHIFT
--- NOTE | 2023-11-07 00:11 | ECG_ITS ---
Measurements Intervals [place] Rate: 132 P: TX: 0 QRS: 45 QRSD: 89 T: -5 QT: 291 QTc: 432 Interpretive Statements ATRIAL FIBRILLATION WITH RAPID VENTRICULAR RESPONSE DELAYED PRECORDIAL R/S TRANSITION NONSPECIFIC ST-T WAVE ABNORMALITY- INFERIOR LEADS BASELINE ARTIFACT- I, III, AVL, V5-V6 ABNORMAL ECG COMPARED TO ECG 09/07/2023 09:56:18 ATRIAL FIBRILLATION NOW PRESENT ST-T WAVE ABNORMALITY NOW PRESENT Electronically Signed On 11-07-2023 8:43:04 SCRAP BURNER by Christopher Mckay D.O.
[2023-11-07 01:09] LABS: Basophils Absolute Auto 0.1 K/mm3 (0.0-0.1); Basophils Percent Auto 0.9 % (0.2-1.2); Eosinophils Absolute Auto 0.3 K/mm3 (0-0.3); Eosinophils Percent Auto 3.8 % (0-4.4); Hematocrit 47.1 % (42.0-52.0); Hemoglobin 15.9 g/dL (14.0-18.0); Immature Granulocyte Absolute 0.02 K/mm3 (0.00-0.031); Immature Granulocyte Percent A 0.3 % (0-0.5); Lymphocytes Absolute Auto 3.07 K/mm3 (0.9-3.2); Lymphocytes Percent Auto 45.1 % (18.3-44.2); Mean Corpuscular HGB Conc 33.8 g/dl (32-36); Mean Corpuscular Hemoglobin 31.9 pg (26-34); Mean Corpuscular Volume 94.4 fl (80-100); Mean Platelet Volume 10.4 fl (7.4-10.4); Monocytes Absolute Auto 0.5 K/mm3 (0.1-0.6); Monocytes Percent Auto 7.9 % (2.6-8.5); Neutrophils Absolute Auto 2.9 K/mm3 (1.3-6.7); Platelet Count Result 280 k/mm3 (150-375); Red Blood Count 4.99 M/mm3 (4.6-6.20); Red Cell Distribution Width 12.9 % (11.5-14.5); White Blood Count 6.8 K/mm3 (4.5-10.0)
[2023-11-07 01:20] LABS: Alanine Aminotransferase 63 U/L (6-50); Albumin Level 3.8 g/dL (3.5-5.1); Alkaline Phosphatase 70 U/L (38-126); Anion Gap 10 mmol/L (8-16); Aspartate Amino Transferase 45 U/L (17-59); Bilirubin,Total 0.4 mg/dL (0.2-1.3); Blood Urea Nitrogen 13 mg/dL (9-20); Calcium 8.6 mg/dL (8.4-10.2); Carbon Dioxide 21 mmol/L (22-30); Chloride 108 mmol/L (98-107); Estimated CRCL calculation 71 ml/min; Estimated Glomerular Filt Rate > 60; Glucose 165 mg/dL (65-110); Lipase 106 U/L (23-300); Potassium 3.6 mmol/L (3.4-5.0); Sodium 139 mmol/L (137-145)
[2023-11-07 01:32] LABS: Partial Thromboplastin Time 29.2 SECONDS (22.3-36.8); Troponin I < 0.012 ng/mL (0.000-0.034)
== END 2023-11-07 01:00 | disposition left against medical advice (07) ==
LOC: ANHED 02:49
PROVIDERS: Emergency Provider Emergency Medicine
DX: R07.89 Other chest pain (principal)
CPT/HCPCS: 36415; 71046; 80053; 83690; 84484; 85025; 85610; 85730; 93005; 99199